=== PATIENT | male | born 1965 | race Caucasian/White ===

== ENCOUNTER 2022-12-27 13:53 | Emergency (ER) | payer OTHER, SELFPAY ==
[2022-12-27 13:56] VITALS: BP 160/107; PULSE 76; RESP 18; TEMP 36.6; O2SAT 94; BMI 36.3
--- NOTE | 2022-12-27 14:08 | CRLHL7_ITS ---
For Patients: As a result of the Century Cures Act, medical imaging exams and procedure reports are released immediately into your electronic medical record. You may view this report before your referring provider. If you have questions, please contact your health care provider. INDICATION: Headaches. TECHNIQUE: Noncontrast CT images acquired through the brain. COMPARISON: None. FINDINGS: The ventricles and sulci are within normal limits for patient age. No mass effect or midline shift. The cuadra-white differentiation is maintained. No acute intracranial hemorrhage or pathologic extra-axial fluid collection. Atherosclerotic calcifications in the carotid siphons. The globes are symmetric. The calvarium is intact. The visualized paranasal sinuses and mastoid air cells are clear. IMPRESSION: No acute intracranial hemorrhage or mass effect. Please note that all CT scans at this facility use dose modulation, iterative reconstruction, and/or weight-based dosing when appropriate to reduce radiation dose to as low as reasonably achievable. Dictated by Terry Goodson MD @ 12/27/2022 3:57:28 PM (Electronically Signed)
--- NOTE | 2022-12-27 16:19 | ED.GENADULT ---
HPI - General Adult General Date Seen: 12/27/22 Chief complaint: Head Injury/Pain Stated complaint: headaches Time Seen by Provider: 12/27/22 15:45 History of Present Illness HPI narrative: This is a very pleasant 57-year-old male with a past history of hypertension, dyslipidemia, type 2 diabetes who was referred from the Urgent Care to the ER for evaluation of head injury, headache, and elevated blood pressure readings. He does not take any anticoagulants. He had a work related head injury that occurred last Tuesday, 7 days prior to presentation. He was bending over and then when he stood up he struck the occiput of his head against a mirror of a semi-truck. He had no loss of consciousness but has had a headache since then. Had a fairly significant headache for a couple of days after the injury. It was then getting better. It got a little bit worse again last and has been present but less severe on Tuesday, Tuesday, and yesterday. He had 1 episode of nausea and vomiting that occurred a couple of days ago. His vision is otherwise normal. No associated numbness or weakness in his arms or legs. No confusion. His headache is not worsening but since it was persistent for a week, he knew that he had reported at work. After doing that he was sent to the urgent care for evaluation. In the urgent care he was neurologically intact but his initial blood pressure readings were elevated at about 190/110 He does have a history of hypertension. His primary care provider, through the [facility] clinic in [place] has been adjusting his blood pressure medication over the recent months. He is going to from lisinopril 20 mg, up to 30 mg, no up to 40 mg. He says his typical baseline blood pressure is approximately 160. Related Data Home Medications Medication Instructions Recorded Confirmed atorvastatin 40 mg tablet mg PO 12/27/22 12/27/22 buspirone 10 mg tablet 10 mg PO BID 12/27/22 12/27/22 dulaglutide 1.5 mg/0.5 mL 1.5 mg subcut 12/27/22 12/27/22 subcutaneous pen injector ([facility]) glipizide 10 mg tablet, extended 10 mg PO DAILY 12/27/22 12/27/22 release 24 hr insulin glargine-yfgn 100 unit/mL unit subcut 12/27/22 12/27/22 (3 mL) subcutaneous pen (Semglee (insulin glargine-yfgn) Pen) lisinopril 40 mg tablet 40 mg PO DAILY 12/27/22 12/27/22 metformin 1,000 mg tablet 1,000 mg PO BID 12/27/22 12/27/22 sertraline 100 mg tablet 100 mg PO BID 12/27/22 12/27/22 Allergies Allergy/AdvReac Type Severity Reaction Status Date / Time No Known Drug Allergies Allergy Verified 12/27/22 12:31 [facility] Social History Smoking Status: Former smoker Do you use any of these nicotine containing products: None Second hand tobacco smoke exposure: No How often do you have a drink containing alcohol: 2-3 times a week How many standard drinks containing alcohol do you have on a typical day: 3 or 4 How often do you have six or more drinks on one occasion: Never AUDIT-C Alcohol total score: 4 Non-prescribed substance use: denies use service: No Exam Narrative: Exam Narrative: Constitutional: Appears well-developed and well-nourished. Alert. Conversant. Non toxic. HENT: Head: Atraumatic. Nose: Nose normal. No depressed skull fracture, [place] Eyes, Leonard's sign, or hemotympanum. Face normal. TMs normal Mouth/Throat: Oral mucosa is clear and moist. no trismus. Pharynx normal. Tonsils symmetric. No tonsillar enlargement, erythema, or exudate. Eyes: Conjunctivae normal. EOM normal. Pupils equal, round, and reactive to light. No scleral icterus. Neck: Normal range of motion. Neck supple. No tracheal deviation present. Cardiovascular: Normal rate, regular rhythm. No gallop. No friction rub. No murmur heard. Symmetric radial artery pulses Pulmonary/Chest: Effort normal. No stridor. No respiratory distress. No wheezes. No rales. No rhonchi . No tenderness. Abdominal: Soft. Bowel sounds normal. No distension. No mass. No tenderness. No rebound. No guarding. Musculoskeletal: RUE: Normal range of motion. No tenderness. No deformity LUE: Normal range of motion. No tenderness. No deformity RLE: Normal range of motion. No edema. No tenderness. No deformity LLE: Normal range of motion. No edema. No tenderness. No deformity Lymph: No cervical adenopathy. Neurological: Mental status normal. Attention normal. Alert and oriented x3. GCS 15. Memory normal. Speech fluent. Cognition normal. Cranial Nerves intact II-XII except I did not formally test gag or visual acuity. EOMI. Palate elevates symmetrically and tongue protrudes in the midline. Strength: 5/5 trapezius on the right and left 5/5 deltoid on the right and left 5/5 biceps on the right and left 5/5 triceps on the right and left 5/5 calculation reviewer on the right and left 5/5 thumb opposition on the right and left 5/5 finger abduction on the right and left 5/5 hip flexors (L3) on the right and left 5/5 quadriceps (L4) on the right and left 5/5 tibialis anterior on the right and left 5/5 EHL (L5) on the right and left 5/5 gastrocnemius (S1) on the right and left 5/5 hamstring on the right and left Sensation intact to light touch in both upper extremities (C4-T1) Sensation intact to light touch in Both lower extremities (L4-S1). Finger to nose and coordination normal. Gait normal. Skin: Skin is warm and dry. No rash noted. No pallor. Normal capillary refill. Psychiatric: Normal mood. Normal affect. Const: Vital Signs, click to edit/add: Vital Signs - 24 hr 12/27/22 13:56 12/27/22 16:24 Temperature 98 F Pulse Rate [Pulse Oximeter] 76 81 Respiratory Rate 18 18 Blood Pressure [Ri ght Upper Arm] 160/107 H 168/96 H Pulse Oximetry 94 93 Oxygen Delivery Me thod Room Air Room Air Course Vital Signs Vital signs: Initial Vital Signs Temperature 98 F 12/27/22 13:56 Temperature Source Temporal Artery Scan 12/27/22 13:56 Pulse Rate 76 12/27/22 13:56 Pulse Rhythm Regular 12/27/22 13:56 Respiratory Rate 18 12/27/22 13:56 Blood Pressure 160/107 H 12/27/22 13:56 Blood Pressure Mean 124 H 12/27/22 13:56 Blood Pressure Position Sitting 12/27/22 13:56 Pulse Oximetry 94 12/27/22 13:56 Oxygen Delivery Method Room Air 12/27/22 13:56 Vital Signs Temperature 98 F 12/27/22 13:56 Pulse Rate 76 12/27/22 13:56 Respiratory Rate 18 12/27/22 13:56 Blood Pressure 160/107 H 12/27/22 13:56 Pulse Oximetry 94 12/27/22 13:56 Oxygen Delivery Method Room Air 12/27/22 13:56 Temperature 98 F 12/27/22 13:56 Pulse Rate 81 12/27/22 16:24 Respiratory Rate 18 12/27/22 16:24 Blood Pressure 168/96 H 12/27/22 16:24 Pulse Oximetry 93 12/27/22 16:24 Oxygen Delivery Method Room Air 12/27/22 16:24 Medical Decision Making MDM Narrative Medical decision making narrative: This patient presents with blunt head trauma that occurred about a week ago. He has had persistent headache since then, also 1 episode of vomiting and perhaps some foggy thinking.. Differential includes intracranial injuries (e.g. skull fracture, epidural hematoma, subdural hematoma, intracerebral hemorrhage, and traumatic subarachnoid hemorrhage), verses concussion or other traumatic brain injury. CT imaging was obtained and fortunately was normal. At this time it appears that the patient's symptoms are due to a concussion. He was sent from the urgent care because he had elevated BP readings in triage in the range of about 190/110 on serial readings. He does have a known history of hypertension. He has been working with his primary care provider in gradually increasing his dose of lisinopril (currently 40 mg per day). Despite those therapies he still has a baseline blood pressure about 160/90. Here in the ER his blood pressure came down from the elevated readings in urgent care to his baseline. Blood pressure came down to about 160/90s without treatment. He does not have any other symptoms of acute hypertensive emergency such as severe headache, focal neurologic deficits, chest pain, trouble breathing. Discussed options for workup with the patient. We discussed possible laboratory workup, EKG here in the ER as well as an acute change in his blood pressure regimen. He prefer not to do that today. Instead he will monitor his blood pressure, measured once every day or 2 in keep recordings and follow-up with his primary care doctor within the next week or so for further blood pressure management. The patient understands that they must return if any red flags appear/develop in the coming hours/days, as this may represent an indication to perform a repeat CT scan or further evaluation. I have noted that red flags include: headaches that get worse, increased drowsiness, strange behavior, repetitive speech, seizures, repeated vomiting, growing confusion, increased irritability, slurred speech, weakness or numbness, and loss of responsiveness. This information will also be provided in writing at discharge. I have discussed the second impact syndrome, and the importance of not sustaining repeated concussion in the next 1-2 weeks. Post concussive syndrome is also discussed. The patient's questions have been answered. Imaging Data CT scan - head: Attestation: I have reviewed the pertinent imaging results. Radiologist's impression: IMPRESSION: No acute intracranial hemorrhage or mass effect. Discharge Plan Discharge Clinical Impression: Closed head injury, Hypertension Patient Disposition: Home, Self-Care Instructions: Head Injury (ED), Hypertension (ED) Additional Instructions: Please monitor your blood pressure and record the results once per day. Check up with your regular doctor within 1 week to for a blood pressure check. Bring your blood pressure measurements with you to the clinic. Your doctor will likely have to adjust her medications to help bring your blood pressure down. Return to the ER right away if you have any concerns-especially if you have worsening headache, blood pressure readings more than 200/100, chest pain, trouble breathing, numbness or weakness down her arms or legs, confusion, trouble speaking, or nausea and vomiting Prescriptions: No Action glipizide 10 mg tablet extended release 24hr 10 mg PO DAILY lisinopril 40 mg tablet 40 mg PO DAILY buspirone 10 mg tablet 10 mg PO BID sertraline 100 mg tablet 100 mg PO BID atorvastatin 40 mg tablet PO metformin 1,000 mg tablet 1,000 mg PO BID Trulicity 1.5 mg/0.5 mL pen injector 1.5 mg subcut insulin glargine-yfgn [Semglee(insulin glarg-yfgn)Pen] 100 unit/mL (3 mL) insulin pen subcut Stand Alone Forms: [employer] Info Instructions
[2022-12-27 16:24] VITALS: BP 168/96; PULSE 81; RESP 18; O2SAT 93
== END 2022-12-27 16:45 | disposition home or self-care (01) ==
LOC: ED 16:42
PROVIDERS: Emergency Provider Emergency Medicine
DX: S09.90XA Unspecified injury of head, initial encounter (principal); I10 Essential (primary) hypertension; W22.8XXA Striking against or struck by other objects, initial encounter
CPT/HCPCS: 70450; 99283